=== PATIENT | female | born 1980 | race Caucasian/White ===

== ENCOUNTER 2020-12-12 12:19 | Outpatient (RCR) | payer BC, SELFPAY ==
[2017-09-13 16:53] VITALS: BMI 31.4
== END 2021-01-16 23:59 ==
LOC: IMMUN 12:19
PROVIDERS: Referring Provider Family Medicine; Visit Provider Family Medicine
DX: Z23 Encounter for immunization (principal)
CPT/HCPCS: 0001A; 0002A; 91300

== ENCOUNTER 2023-05-17 09:23 | Emergency (ER) | payer BC, SELFPAY ==
[2023-05-17 09:24] VITALS: BP 123/73; PULSE 93; RESP 16; TEMP 35.8; O2SAT 100; BMI 31.8
--- NOTE | 2023-05-17 10:31 | ED.VIS.GI ---
HPI HPI - GI History of Present Illness Chief Complaint: Abd Pain Informant: patient Abdominal Pain/Flank Pain Onset: Yesterday Context: Gradual Onset Timing: Continuous Quality: Burning and Cramping Location: - (Periumbilical) Worsened by: Movement (Bending, pushing, pulling) Relieved by: Nothing Nausea/Vomiting/Emesis GI Symptom: Positive for Nausea and Vomiting Quality: Positive for Nonbilious; Negative for Blood streaks, Coffee ground or Hematemesis Diarrhea/Melena/Hematochezia GI Symptom: Negative for Diarrhea, Melena or Hematochezia Associated Symptoms Associated Symptoms: Positive for Frequency; Negative for Dysuria or Hematuria LMP: Last week Narrative Narrative: Patient presents with abdominal pain that began yesterday. Patient states it is gradually gotten worse. Patient states her pain is mainly over the periumbilical area. Patient describes it as cramping and burning. Patient states it is worse with bending, pushing, and pulling. Patient admits to some nausea and vomiting. Patient denies any hematemesis or coffee-ground emesis. Patient denies any diarrhea, melena, or hematochezia. Patient admits to some urinary frequency but denies any dysuria or hematuria. Patient states she recently finished her last menstrual period. [facility] Medical History (Updated 05/17/23 @ 14:[address] Rik Sainz, ) Diarrhea Migraine headache without aura Severe headache Home Medications divalproex 125 mg tablet,delayed release (Depakote) PO 09/13/17 [History Last Taken Unknown] gabapentin 100 mg capsule 100 mg PO QDAY 09/13/17 [History Last Taken Unknown] ibuprofen 800 mg-famotidine 26.6 mg tablet (Duexis) 1 tab PO TID 09/13/17 [History Last Taken Unknown] ketorolac 15 mg/mL injection syringe 15 mg IM ONCE #4 mL 09/13/17 [Clinic Last Taken Unknown] leuprolide 3.75 mg intramuscular syringe kit (Lupron Depot) 3.75 mg IM QMONTH 09/13/17 [History Last Taken Unknown] rizatriptan 10 mg tablet PO 9 days ##9 09/13/17 [History Last Taken Unknown] zolpidem 5 mg tablet (Ambien) 5 mg PO HS PRN 09/13/17 [History Last Taken Unknown] Allergy/AdvReac Type Severity Reaction Status Date / Time paroxetine [From Paxil] Allergy Intermediate Hives Verified 05/17/23 09:26 sertraline [From Zoloft] Allergy Intermediate Hives Verified 05/17/23 09:26 Surgical History Hx of laparoscopy Social History (Updated 05/17/23 @ 10:[address] Rik Sainz, DO) Smoking Status: Current every day smoker tobacco type: cigarettes alcohol intake: never ROS ROS ED Constitutional Constitutional ED: Reports chills and subjective; Denies fever(s) Eyes Eyes: Denies blurry vision or change in vision ENT ENT ED: Denies rhinorrhea or sore throat Cardiovascular Cardiovascular: Denies chest pain or palpitations Respiratory/Chest Respiratory/Chest: Denies cough or dyspnea Gastrointestinal Gastrointestinal: Reports abdominal pain, nausea and vomiting Genitourinary Genitourinary ED: Reports urinary frequency; Denies dysuria or hematuria Musculoskeletal Musculoskeletal: Reports back pain and neck pain Integumentary Denies abscess or rash Neurologic Neurologic: Reports headache(s); Denies weakness Allergic/Immunologic Allergic/Immunologic ED: Denies mouth swelling or urticaria EXAM Physical Exam Const Vital Signs: 05/17/23 09:24 05/17/23 12:14 Temperature 96.5 F L Temperature Source Temporal Pulse Rate 93 Respiratory Rate 16 16 Blood Pressure 123/73 H Blood Pressure Mean 89 Pulse Ox 100 Oxygen Delivery Method Room Air Positive well nourished and well developed General Appearance ED: well developed and NAD HEENT Reports moist mucous membranes Neck supple and no JVD Resp normal respiratory effort and clear to auscultation bilaterally Cardio regular rate and regular rhythm GI Palpation: soft and tender periumbilical; Negative for guarding or rebound tenderness present Neuro CN's II-XII intact bilaterally, moves all extremities and no sensory deficits noted Sensorium / Orientation: alert Motor Exam: strength 5/5 throughout Psych mental status grossly normal MDM MDM MDM Narrative Medical decision making narrative: Differential diagnosis includes bowel obstruction, perforation, appendicitis, umbilical hernia, gastroenteritis, urinary tract infection, ovarian cyst, ovarian torsion, and pancreatitis. CT scan of the abdomen pelvis will be obtained to assess for appendicitis, bowel obstruction, perforation, and pancreatitis. CBC will be obtained to assess for leukocytosis and anemia. Comprehensive metabolic profile will be obtained to assess for hepatic function, renal function, and electrolyte abnormality. Lipase will be obtained to assess for pancreatitis. Urinalysis will be obtained to assess for urinary tract infection. Lactic acid will be obtained to assess for ischemic bowel and sepsis. Lab Data Attestation: I reviewed the patient's lab results. Lab results narrative: CBC was reviewed and was within normal limits. Comprehensive metabolic profile was reviewed and was within normal limits. Lipase was reviewed and was normal. Urinalysis was reviewed and does not show any evidence of urinary tract infection or hematuria. Labs: Laboratory Results - last 24 hr 05/17/23 05/17/23 10:25 10:52 WBC 7.8 RBC 4.31 Hgb 13.4 Hct 39.3 MCV 91.2 MCH 31.1 MCHC 34.1 RDW Std Deviation 41.9 RDW Coeff of Gabe 12.5 Plt Count 257 MPV 10.5 Immature Gran % (Auto) 0.300 Neut % (Auto) 65.0 Lymph % (Auto) 25.0 [place] % (Auto) 7.7 Eos % (Auto) 1.7 Baso % (Auto) 0.3 Absolute Neuts (auto) 5.1 Absolute Lymphs (auto) 1.96 Nucleated RBC % 0 Sodium 140 Potassium 3.8 Chloride 108 H Carbon Dioxide 28.0 Anion Gap 4 L BUN 12 Creatinine 0.66 Estim Creat Clear Calc 88.72 Est GFR (MDRD) Af Amer 128 Est GFR (MDRD) Non-Af 105 BUN/Creatinine Ratio 18.3 Glucose 100 Lactic Acid 1.1 Calcium 8.5 Total Bilirubin 0.30 AST 10 L ALT 22 Alkaline Phosphatase 93 Total Protein 6.9 Albumin 3.4 Globulin 3.5 Albumin/Globulin Ratio 1.0 Lipase 34 Urine Color Yellow Urine Clarity Clear Urine pH 7.0 Ur Specific [place] 1.010 Urine Protein Negative Urine Glucose (UA) Normal Urine Ketones Negative Urine Occult Blood 10 H Urine Nitrite Negative Urine Bilirubin Negative Urine Urobilinogen Normal Ur Leukocyte Esterase Negative Urine RBC 0 SEEN Urine WBC 0 SEEN Ur Squamous Epith Cells 0 SEEN Urine Bacteria 0 SEEN Urine Mucus 0 SEEN Radiography Diagnostic Testing: Clinical Impression(s) from Imaging Studies Abdomen/Pelvis CT 05/17/23 12:02 IMPRESSION: No acute abdominal or pelvic abnormality. Electronically Signed: Delta Delvalle MD at 12:31 EDT , CT scan of the abdomen pelvis was obtained. There is no acute abnormality noted. This was interpreted by the radiologist and was also independently reviewed by myself. Treatment and Re-Evaluation :: Patient was given IV fluids, morphine, and Zofran. Patient is feeling better on reevaluation. Patient was advised of her findings. Patient was instructed to start with a bland diet and advance as tolerated. Patient was instructed to follow-up with her primary care physician in 5 to 7 days. Patient understood and was agreeable with the plan. All questions were answered. Discharge Plan Triage Chief Complaint: Abd Pain ED Provider: Rik Sainz Dx/Rx/DC Orders Clinical Impression: Abdominal pain Instructions: ED Abdominal Pain Unkn Cause Fem Prescriptions: No Action rizatriptan 10 mg tablet PO 9 Days Qty: 9 Patient Comments: divalproex [Depakote] 125 mg tablet,delayed release (DR/EC) PO ibuprofen-famotidine [Duexis] 800-26.6 mg tablet 1 tab PO TID gabapentin 100 mg capsule 100 mg PO QDAY leuprolide [Lupron Depot] 3.75 mg syringe kit 3.75 mg IM QMONTH zolpidem [Ambien] 5 mg tablet 5 mg PO HS PRN ketorolac 15 mg/mL syringe 15 mg IM ONCE Qty: 4 0RF Primary Care Provider: Ricardo Manuel Referrals: Ricardo Manuel MD [Primary Care Provider] - 5-7 Days Disposition Disposition: Home, Self Care
[2023-05-17 10:35] LABS: Absolute Lymphocyte Count 1.96 X10^3/uL (0.83-4.51); Absolute Neutrophil Count 5.1 X10^3/uL (2.0-7.7); Basophil# 0.02 X10^3/uL; Basophil% 0.3 % (0-1); Eosinophil# 0.13 X10^3/uL; Eosinophils% 1.7 % (0-5); Hematocrit 39.3 % (37-47); Hemoglobin 13.4 g/dL (12.0-15.0); Lymphocyte # 1.96 X10^3/ul (0.83-4.51); Mean Corp Hgb Conc 34.1 g/dL (32-36); Mean Corpuscular Hgb 31.1 pg (27.0-32.0); Mean Corpuscular Volume 91.2 fL (81-99); Mean Platelet Vol. 10.5 fl (6.2-12.0); Monocyte% 7.7 % (0-10); NRBC Flagged by Analyzer 0 % (0-5); Neutrophil # 5.11 X10^3/uL (2.7-7.7); Platelet Count 257 K/mm3 (150-450); RBC Distribution Width CV 12.5 % (11.6-14.6); RBC Distribution Width SD 41.9 fl (35.1-43.9); Red Blood Count 4.31 M/mm3 (4.2-5.4); White Blood Count 7.8 K/mm3 (4.4-11.0)
[2023-05-17] MEDS: 0.9% Normal Saline (1000mL) 1,000 ML 1000 ML IV (10:49)
[2023-05-17] MEDS: Ondansetron 4 MG/2 ML Vial IV (10:49)
[2023-05-17] MEDS: Morphine 4 MG/ML Syringe IV (10:49)
[2023-05-17 10:52] LABS: AST(SGOT) 10 U/L (15-37); Alanine Aminotransfer ALT/SGPT 22 U/L (13-56); Albumin, Serum 3.4 g/dL (3.2-5.0); Alkaline Phosphatase 93 U/L (45-117); Anion Gap 4 (5-15); BUN 12 mg/dL (7-18); BUN/Creat Ratio 18.3 RATIO (10-20); Calcium,Total 8.5 mg/dL (8.5-10.1); Chloride 108 mmol/L (98-107); Creatinine, Serum 0.66 mg/dL (0.55-1.02); EST Glomerular Filtration Rate 105 mL/min (>60); Est Glom Filt Rate - Afr Amer 128 mL/min (>60); Estimated Creatinine Clearance 88.72 ml/min; Globulin 3.5 g/dL (2.2-4.2); Glucose 100 mg/dL (74-106); Lipase 34 U/L (13-75); Potassium 3.8 mmol/L (3.5-5.1); Protein, Total 6.9 g/dL (6.4-8.2); Sodium Level 140 mmol/L (136-145)
[2023-05-17 10:58] LABS: Bacteria 0 SEEN /hpf (None Seen); Mucous, Urine 0 SEEN /hpf (<or=2+); Red Blood Cells-Urine 0 SEEN /hpf (0-5); Squamous Epithelial Cells - UA 0 SEEN /hpf (5-10); White Blood Cells 0 SEEN /hpf (0-5)
[2023-05-17 11:00] LABS: Lactic Acid 1.1 mmol/L (0.4-1.9)
[2023-05-17 11:00] LABS: Color, Urine Yellow (Yellow); Glucose, Dipstick Normal (Normal); Ketone-Dipstick Negative (Negative); Leukocyte Esterase-Dipstick Negative /ul (Negative); Nitrite-Dipstick Negative (Negative); Occult Blood-Urine 10 /ul (Negative); Protein-Dipstick Negative (Negative); Urine Bilirubin Dipstick Negative (Negative); Urine Clarity Clear (Clear); Urine Urobilinogen Normal (Normal)
--- NOTE | 2023-05-17 12:02 | CT_ITS ---
EXAM: CT ABDOMEN AND PELVIS WITH INTRAVENOUS CONTRAST CLINICAL INDICATION: Abdominal pain -- IV PO Contrast TECHNIQUE: Helically acquired images were obtained of the abdomen and pelvis with intravenous contrast. This CT exam was performed using one or more of the following dose reduction techniques: automated exposure control, adjustment of the mA and/or kV according to patient size, and/or use of iterative reconstruction technique. CONTRAST: Oral and amp; IV Gastrografin and amp; 100mL Isovue-300 COMPARISON: No relevant prior studies available. FINDINGS: LOWER THORAX: Normal. Lung bases are clear. No cardiomegaly. No pericardial effusion. ABDOMEN: LIVER: Normal. Homogeneous. No focal mass. PANCREAS: Normal. No focal cystic or solid mass. SPLEEN: Normal. Normal size without focal cystic or solid mass. ADRENALS: Normal. No nodules. KIDNEYS AND URETERS: Normal. Normal renal size and position. No hydronephrosis. STOMACH AND BOWEL: Normal. No bowel distention. No focal inflammatory change. PELVIS: APPENDIX: Appendix is visualized and normal in appearance. 2.9 cm hypodense right adnexal lesion likely physiologic change of the ovary. BLADDER: Normal. REPRODUCTIVE: Unremarkable as visualized. No mass. ABDOMEN and PELVIS: INTRAPERITONEAL SPACE: Normal. No ascites or other fluid collection. No free air. BONES/JOINTS: No suspicious lytic or blastic abnormality. SOFT TISSUES: Normal. No discrete abdominal or pelvic wall hernia. VASCULATURE: Normal. Abdominal aorta is non-dilated. LYMPH NODES: Normal. No enlarged lymph nodes. CT/Abdomen/Pelvis WITH Contrast IMPRESSION: No acute abdominal or pelvic abnormality. Electronically Signed: Delta Delvalle MD at 12:31 EDT ,
[2023-05-17 12:14] VITALS: RESP 16
[2023-05-17 14:21] VITALS: RESP 16
--- NOTE | 2023-05-17 14:23 | ED.RN ---
PT EDUCATED THAT SHE CANNOT DRIVE FOR 6 HOURS AFTER HAVING MORPHINE. PT REPORTS THAT SHE WILL CALL HER [employer] TO PICK HER UP AND PT VERBALIZES UNDERSTANDING. PT AMBULATES OUT OF DEPT TO WAITING ROOM TO WAIT FOR RIDE.
== END 2023-05-17 14:27 | disposition home or self-care (01) ==
PROVIDERS: Emergency Provider Emergency Medicine; Visit Provider Emergency Medicine
DX: R10.33 Periumbilical pain (principal); F17.210 Nicotine dependence, cigarettes, uncomplicated
CPT/HCPCS: 74177; 80053; 81001; 83605; 83690; 85025; 96361; 96374; 96375; 99282; J7030; Q9967; A4216; J2405